=== PATIENT | male | born 1960 | race Caucasian/White ===

== ENCOUNTER → 2022-04-02 | Outpatient (CLI) | payer OTHER ==
--- NOTE | 2022-04-02 17:10 | DIREP ---
PROCEDURE:XRAY KNEE 2 VWS-RT COMPARISON:None. INDICATIONS:Z00.00 HISTORY AND PHYSICAL EVALUATION FINDINGS: BONES:No visible fracture. JOINTS:No significant effusion. SOFT TISSUES:Normal. OTHER:No additional findings. CONCLUSION:No acute osseous or joint space abnormality seen. Dictated by: Cheko Cee M.D. on 04/02/2022 at 05:02 PM
== END | disposition home or self-care (01) ==
LOC: RAD 09:47
DX: Z00.00 Encounter for general adult medical examination without abnormal findings (principal)
CPT/HCPCS: 73560

== ENCOUNTER → 2022-04-07 | Outpatient (CLI) | payer OTHER ==
--- NOTE | 2022-04-07 13:46 | DIREP ---
PROCEDURE:XRAY ANKLE MIN 3VWS-LT COMPARISON:None. INDICATIONS:Z00.00 HISTORY AND PHYSICAL EVALUATION FINDINGS: BONES:Calcaneal plantar enthesophyte. Well corticated ossific fragment distal to the medial malleolus consistent sequela of remote trauma. No acute fracture noted. JOINTS:Normal. SOFT TISSUES:Normal. OTHER:No additional findings. CONCLUSION:No acute bony abnormality. Dictated by: Nancy Elizondo M.D. on 04/07/2022 at 01:44 PM
--- NOTE | 2022-04-07 13:47 | DIREP ---
PROCEDURE:XRAY HAND MIN 3 VW-LT COMPARISON:None. INDICATIONS:Z00.00 HISTORY AND PHYSICAL EVALUATION FINDINGS: BONES:No fracture. JOINTS:Mild osteophytosis at the distal interphalangeal joints. SOFT TISSUES:Normal. OTHER:No additional findings. CONCLUSION:Mild degenerative changes without acute bony abnormality. Dictated by: Nancy Elizondo M.D. on 04/07/2022 at 01:45 PM
--- NOTE | 2022-04-07 13:50 | DIREP ---
PROCEDURE:XRAY KNEE 2 VWS-LT COMPARISON:None. INDICATIONS:Z00.00 HISTORY AND PHYSICAL EVALUATION FINDINGS: BONES:Normal. JOINTS:Minimal patellofemoral osteophytosis. No effusion. SOFT TISSUES:Normal. OTHER:No additional findings. CONCLUSION:Minimal degenerative change without acute bony abnormality. Dictated by: Nancy Elizondo M.D. on 04/07/2022 at 01:48 PM
--- NOTE | 2022-04-07 13:50 | DIREP ---
PROCEDURE:XRAY ANKLE MIN 3VWS-RT COMPARISON:None. INDICATIONS:Z00.00 HISTORY AND PHYSICAL EVALUATION FINDINGS: BONES:Calcaneal Achilles and plantar enthesophytes. No fracture. JOINTS:Normal. SOFT TISSUES:Normal. OTHER:No additional findings. CONCLUSION:No acute bony abnormality. Dictated by: Nancy Elizondo M.D. on 04/07/2022 at 01:49 PM
--- NOTE | 2022-04-07 13:51 | DIREP ---
PROCEDURE:XRAY HAND MIN 3 VW-RT COMPARISON:None. INDICATIONS:Z00.00 HISTORY AND PHYSICAL EVALUATION FINDINGS: BONES:Normal. JOINTS:Mild osteophytosis at the thumb interphalangeal joint. SOFT TISSUES:Normal. OTHER:No additional findings. CONCLUSION:Mild degenerative change without acute bony abnormality. Dictated by: Nancy Elizondo M.D. on 04/07/2022 at 01:49 PM
== END | disposition home or self-care (01) ==
LOC: RAD 09:47
DX: Z00.00 Encounter for general adult medical examination without abnormal findings (principal); M19.041 Primary osteoarthritis, right hand; M19.042 Primary osteoarthritis, left hand; M25.741 Osteophyte, right hand; M77.32 Calcaneal spur, left foot
CPT/HCPCS: 73130-LT; 73130-RT; 73560-LT; 73610-LT; 73610-RT